=== PATIENT | female | born 1965 | race Caucasian/White ===

== ENCOUNTER → 2016-08-20 | Outpatient (CLI) | payer BC ==
[~2016-08-20] MED LIST: BCPILLS PO; CZR50 PO; FRCT/ PO; MONT1TAB3 PO; MULT-513 PO; SIMV40TA2 PO; VENL75TA4 PO
--- NOTE | 2016-08-20 16:17 | DIAGNOSTIC IMAGING REPORT ---
PELVIC ULTRASOUND CLINICAL HISTORY: Postmenopausal bleeding. COMPARISON STUDY: None. TECHNIQUE: Transabdominal and transvaginal sonography of the pelvis was performed. FINDINGS: The uterus measures 8.7 x 4.2 x 4.5 cm. The endometrium measures 2 mm thickness. A 1.7 x 1.4 x 1.5 cm hypoechoic right uterine lesion suggests a fibroid. This is likely mural in location. The right ovary was not visualized. The left ovary measured 2.6 x 1.6 x 1.7 cm. No free fluid was identified. IMPRESSION: 1. Normal endometrial thickness of 2 mm. 2. 1.7 cm mural right uterine body fibroid. 3. Nonvisualization of the right ovary. Electronically signed by: Olvin Murdock M.D. 08/20/2016 4:16 PM Dictated Date/Time: 08/20/2016 4:05 PM
== END | disposition home or self-care (01) ==
LOC: C.ULTR 15:22
DX: N95.0 Postmenopausal bleeding (principal)

== ENCOUNTER 2020-03-05 10:01 | Observation (INO) ==
--- NOTE | 2020-02-03 10:08 | PAT Medication Instructions ---
Medication Instructions Date of Service February 03, 2020 Home Medications geqxbsskcd-seguheobgpqtx-kwpn 1 cap PO Q8H PRN losartan 75 mg PO QAM montelukast 10 mg PO QAM simvastatin 40 mg PO QAM spironolactone 25 mg PO BID venlafaxine 37.5 mg PO Q2D vit A-vit C-vit Q-ffhh-wuvgkh [Eye Vitamin and Minerals] 1 tab PO BID STOP taking 2 weeks before surgery If surgery is within 2 weeks, stop taking as soon as possible. vit A-vit C-vit C-xbvs-rkikhj [Eye Vitamin and Minerals] 1 tab PO BID DO NOT take the morning of surgery gsjpbtofdf-zghypwrfqnnei-vqbe 1 cap PO Q8H PRN losartan 75 mg PO QAM montelukast 10 mg PO QAM spironolactone 25 mg PO BID Take morning of surgery With a small sip of water, OTHERWISE NOTHING TO EAT OR DRINK AFTER MIDNIGHT: simvastatin 40 mg PO QAM venlafaxine 37.5 mg PO Q2D (if scheduled) Take evening before surgery wryvvftqol-sagclbchiqvff-yvoj 1 cap PO Q8H PRN (if needed) spironolactone 25 mg PO BID Other Notes If you have any questions please call us at [phone] or [phone] or [phone] or [phone]
--- NOTE | 2020-02-06 09:07 | Anesthesiology Consultation ---
Date of Service February 06, 2020 Assessment & Plan (1) Encounter for pre-operative examination: COVID Status: As of 02/05 assessment, patient denies travel to endemic area, known exposure/sick contacts, or symptoms of COVID19. Patient instructed that they and their household members must follow strict social distancing guidelines, wear a mask in public and avoid travel for 14 days prior to surgery. Preoperative COVID19 testing to be completed prior to surgery per surgeon's arra ngements. Patient made aware to self-isolate as much as possible between COVID testing and surgery. Chart Review Chart Review: Acceptable Risk for Surgery and Patient seen in Pre Admission Testing Teaching & Discussion Instructed NPO after midnight before surgery, except medications with 15 cc of water. Medication instructions provided according to the PAT guidelines. History Surgery Operation Date: 03/05/20 11:10 Proposed Procedures p Left Total Hip Replacement - Haile De La Rosa MD Height/Weight Height: 5 ft 0.5 in Weight: 65.9 kg Allergies Allergy/AdvReac Type Severity Reaction Status Date / Time lisinopril Allergy Severe angio edema Verified 01/27/20 11:11 celecoxib [From Celebrex] Allergy Intermediate MOUTH Verified 01/27/20 11:11 BLEEDING meloxicam Allergy Intermediate HYPERACTIVITY Verified 01/27/20 11:11 DURING THE DAY Penicillins Allergy Intermediate FEET Verified 01/27/20 11:11 SWOLLEN levofloxacin Allergy Mild redness Verified 01/27/20 11:11 and swelling of hand acetaminophen [From Vicodin] AdvReac Mild Insomnia Verified 01/27/20 11:11 hydrocodone [From Vicodin] AdvReac Mild Insomnia Verified 01/27/20 11:11 Medications Home Medications Medication Instructions Recorded Confirmed Last Taken xnfclwmflh-tgqrpscknuicx-krdl 1 cap PO Q8H PRN 01/27/20 01/27/20 Unknown losartan 75 mg PO QAM 01/27/20 01/27/20 Unknown montelukast 10 mg PO QAM 01/27/20 01/27/20 Unknown simvastatin 40 mg PO QAM 01/27/20 01/27/20 Unknown spironolactone 25 mg PO BID 01/27/20 01/27/20 Unknown venlafaxine 37.5 mg PO Q2D 01/27/20 01/27/20 Unknown vit A-vit C-vit V-dcvc-pvdaey [Eye 1 tab PO BID 01/27/20 01/27/20 Unknown Vitamin and Minerals] Past Medical History Medical History (Updated 02/06/20 @ 15:22 by Ray Tomas) Anxiety Dry eye syndrome Hx of cardiac murmur A CHILD. NOT NOTED ON EXAM AT [facility]. Hyperlipidemia Hypertension Migraine MRSA (methicillin resistant Staphylococcus aureus) 10 YRS AGO IN SPIDER BITE. NASAL SWAB 02/06/20 NEGATIVE. Osteoarthritis Exercise / Class Metabolic Activity II 4-5 Yardwork/Stairs/Walk up hill Past Family History Family History Mother Family history of diabetes mellitus Past Surgical History Surgical History History of bowel resection "FOR TWISTED BOWEL" History of cholecystectomy History of surgery of head I & D (SPIDER BITE INFECTION +MRSA) History of tooth extraction S/P LASIK surgery of both eyes Past Anesthesia History No Hx of Anesthesia Complications and No Family Hx of Anesthesia Complications History of PONV No Hx of PONV and Hx of Motion Sickness Social History Smoking Status: Never smoker Do You Dip or Chew Tobacco: No Hx Alcohol Use: Yes alcohol intake frequency: holidays/special occasions only Hx Substance Use: No Review of Systems Pt denies any recent chest pain, shortness of breath, cough, fever, URI, or uncontrolled acid reflux. +claustrophobia, palpitations induced by panic from mask-wearing Physical Exam Vital Signs BP: 156/89 (pt feeling anxious due to mask wearing) P: 104bpm SPO2:97% RA T: 98.8 F R: ENMT Mouth: no dental restorations, no chipped teeth and no loose teeth Thyromental Distance: > or= 3.5 Finger Breadths Mallampati Class: II Neck normal visual inspection; neck extension not limited Respiratory normal respiratory effort Auscultation: lungs clear to auscultation bilaterally Cardiovascular Rate/Rhythm: regular rhythm and + tachycardic Heart Sounds: no murmur Extremities: no edema Testing Laboratory Results 02/06/20 09:16 02/06/20 09:16 PT 10.3 Seconds (9.0-12.0) 02/06/20 09:16 INR 1.0 (0.9-1.1) 02/06/20 09:16 APTT 27.3 Seconds (21.0-31.0) 02/06/20 09:16 Blood Type O Positive 02/06/20 09:16 Antibody Screen NEGATIVE 02/06/20 09:16 Electrocardiogram Date: 02/06/20 Findings: + NSR @ (81bpm) *unconfirmed Chest X-Ray Date: 02/06/20 Findings: + NAD
--- NOTE | 2020-02-06 09:38 | XRay Report ---
TWO VIEW CHEST CLINICAL HISTORY: Preoperative examination. FINDINGS: PA and lateral chest radiographs are compared to study dated 12/31/2013. The cardiomediastin al silhouette is unremarkable. There is mild chronic elevation of the right hemidiaphragm. The lungs and pleural spaces are clear. There is no pneumothorax. The skeletal structures are osteopenic. The b michael thorax appears intact. Cholecystectomy clips are noted in the right upper quadrant. IMPRESSION: No active disease in the chest. ACT 112: Negative or not required by law. Electronically signed by: Elvis Liu M.D. 02/06/2020 9:37 AM
[2020-02-06 10:23] LABS: Basophils # (auto) 0.05 K/uL (0-0.2); Eosinophils % (auto) 1.9 %; Hematocrit (blood only) 41.6 % (37-47); Hemoglobin 13.9 g/dL (12.0-16.0); Immature Granulocytes # (auto) 0.02 K/uL (0.00-0.02); Immature Granulocytes % (auto) 0.4 %; Lymphocytes # (auto) 2.04 K/uL (1.2-3.4); Lymphocytes % (auto) 39.8 %; Mean Corpuscular Hemoglobin 28.7 pg (25-34); Mean Corpuscular Hgb Conc 33.4 g/dL (32-36); Mean Platelet Volume 9.4 fL (7.4-10.4); Monocytes # (auto) 0.31 K/uL (0.11-0.59); Neutrophils # (auto) 2.61 K/uL (1.4-6.5); Neutrophils % (auto) 50.9 %; Platelet Count 251 K/uL (130-400); RDW Coefficient of Variation 12.6 % (11.5-14.5); RDW Standard Deviation 40.1 fL (36.4-46.3); Red Blood Count 4.84 M/uL (4.2-5.4); White Blood Count 5.13 K/uL (4.8-10.8)
[2020-02-06 10:44] LABS: Partial Thromboplastin Time 27.3 Seconds (21.0-31.0); Prothrombin Time 10.3 Seconds (9.0-12.0)
[2020-02-06 10:57] LABS: BUN Creatinine Ratio 19.7 (10-20); Calcium 9.8 mg/dl (8.5-10.1); Creatinine Clr Calc Pharmacy 52.8 ml/min; Est GFR (African American) 71.2; Est GFR (Non-African American) 61.4; Potassium 4.6 mmol/L (3.5-5.1)
--- NOTE | 2020-02-07 19:27 | Electrocardiogram Report ---
Test Reason : Blood Pressure : / mmHG Vent. Rate : 081 BPM Atrial Rate : 081 BPM P-R Int : 160 ms QRS Dur : 080 ms QT Int : 368 ms P-R-T Axes : 069 080 067 degrees QTc Int : 427 ms Normal sinus rhythm Normal ECG When compared with ECG of 05-DEC-2012 14:13, No significant change was found Confirmed by Mathieu Wallace ([id number]) on 02/07/2020 7:26:52 PM Referred By: Haile De La Rosa Confirmed By:Mathieu Wallace
--- NOTE | 2020-03-02 18:20 | History and Physical Report ---
DATE OF ADMISSION: 03/05/2020 CHIEF COMPLAINT: Left hip pain and discomfort. HISTORY OF PRESENT ILLNESS: The patient is a 54-year-old very active female who presents for surgical treatment of her left hip. She is referred to my clinic by my partner, Dr. Kearns. She has a several year history of increasing left hip pain and discomfort that has gotten worse over time. She used to be an avid runner, but unable to run anymore. She has been unable to run for a couple years. She describes mostly groin and thigh pain. Her activity level has decreased as a result of her pain. She has gained weight and unable to exercise to work this off. She takes anti-inflammatories with minimal relief. She has difficulty putting her shoes and socks on. She would like to have her hip fixed. Of note, she has a history of MRSA infection in the past. She did have a recent negative culture. PAST MEDICAL HISTORY: Significant for, 1. MRSA infection in the past. 2. Hypertension. 3. Elevated cholesterol. PAST SURGICAL HISTORY: Includes, 1. Bowel resection. 2. Cholecystectomy. 3. MRSA infection on her forehead from a spider bite. She did have a recent negative MRSA test. ALLERGIES: PENICILLIN, WHICH CAUSES SWOLLEN FEET ONLY. NO REAL TRUE ALLERGY. SHE DESCRIBES ALLERGIES TO VICODIN, LISINOPRIL, LEVOFLOXACIN, MELOXICAM AND CELEBREX. CURRENT MEDICINES: Include, 1. Cozaar 75 mg. 2. Zocor 40 mg. 3. Effexor 37.5 mg every other day. 4. Singulair 10 mg. 5. Spironolactone 25 mg twice a day. 6. Conklin with vitamin E twice a day. 7. Aspirin. 8. Caffeine. 9. Fiorinal. SOCIAL HISTORY: A 54-year-old female. She is quite active. Does not smoke. Occasional alcohol intake. FAMILY HISTORY: Noncontributory. REVIEW OF HISTORY: Negative for diabetes, neurologic problem, vascular problems or bleeding disorders. Denies any chest pain or shortness of breath. No history of DVT or PE. No known bleeding problems. PHYSICAL EXAMINATION: GENERAL: Shows a pleasant, middle-aged female. Looks to be in excellent health. HEENT: Benign. NECK: Supple, no lymphadenopathy. LUNGS: Clear to auscultation. HEART: Has a regular rate and rhythm. ABDOMEN: Soft, nontender, nondistended. EXTREMITIES: Grossly neurovascularly intact except as follows: Examination of the left hip and leg reveals the patient ambulates with a significantly antalgic gait. She limps on the left side. Leg lengths appear pretty clinically equal. She has got a very stiff hip on the left side with internal rotation in neutral, which re-creates her pain. Negative straight leg raise. No knee effusion. X-RAYS: X-rays of the left hip were reviewed. It shows advanced left hip DJD. She has complete loss of her superior joint space. She has got a large medial osteophyte. She has got osteophytes around the femoral head and subchondral sclerosis. ASSESSMENT: A 54-year-old white female with advanced left hip degenerative joint disease. It is affecting her quality of life. She has failed conservative treatment and would like to have her left hip fixed. PLAN: We are going to proceed with a left total hip replacement. The risks and benefits of this procedure were explained to the patient including but not limited to DVT, PE, , infection, neurological injury, vascular injury, bleeding problem, pain, limited range of motion, stiffness, failure to relieve her symptoms, incomplete relief of symptoms, need for further surgery in the future, fracture, leg length inequality, nerve palsy, dislocation, etc. The patient understands and desires to proceed. Informed consent was obtained. She has a history of MRSA infection in the past. She did have a recent negative screen, but we will likely give her preoperative vancomycin and Ancef for prophylactic reasons. She is planning to be discharged home using [facility] home health program.
[~2020-03-05 10:01] MED LIST changes: +ACETAMINOPHEN 500 MG TAB PO SCH; -BCPILLS PO; +BUPIVACAINE 0.5 % 5 MG/1 ML PF 10ML VIAL ONE; +CEFAZOLIN 2000MG 2,000 MG/15 ML SYR IV SCH; -CZR50 PO; +FAMOTIDINE 20 MG TAB PO SCH; -FRCT/ PO; +GABAPENTIN 600 MG DOSE PO SCH; +LR 500ML BOLUS, THEN 15ML/HR IV SCH; +LR 60ML/HR IV SCH; +METOCLOPRAMIDE HCL 10 MG TABLET PO SCH; -MONT1TAB3 PO; -MULT-513 PO; -SIMV40TA2 PO; +TRANEXAMIC ACID 1,000 MG **IV Pre-op IV SCH; +VANCOMYCIN HCL 1,000 MG/270 ML BAG IV SCH; -VENL75TA4 PO
--- NOTE | 2020-03-05 10:54 | History & Physical Bridge Note ---
Date of Service March 05, 2020 History & Physical Bridge Note I have examined the patient, reviewed the History & Physical and in the interval since the performance of the History & Physical I have noted the following changes of clinical significance: no changes noted
[2020-03-05] MEDS ORDERED: MoRPHine SULFATE PF 1 MG/ML 10 ML AMP/VIAL ONE (11:35)
[2020-03-05] MEDS ORDERED: MIDAZOLAM HCL 1 MG/ML 2ML VIAL ONE ×2 (11:35)
[2020-03-05] MEDS ORDERED: fentaNYL citrate 100 MCG/2 ML VIAL ONE (11:35)
[2020-03-05] MEDS ORDERED: PROMETHAZINE HCL 12.5 MG in SODIUM CHLORIDE 0.9% 50 ML IV PRN (12:00)
[2020-03-05] MEDS ORDERED: fentaNYL citrate 100 MCG/2 ML VIAL IV PRN (12:00)
[2020-03-05] MEDS ORDERED: ePHEDrine sulfate 50 MG/ML AMP IV PRN ×2 (12:00→12:57)
[2020-03-05] MEDS ORDERED: HYDROmorphone INJ 2 MG/ML SYR/VIAL IV PRN (12:00)
[2020-03-05] MEDS ORDERED: ONDANSETRON INJ 2 MG/ML 2 ML VIAL IV PRN ×3 (12:00→15:59)
[2020-03-05] MEDS ORDERED: ATROPINE SULFATE 0.1 MG/ML 10ML SYR IV PRN (12:00)
[2020-03-05] MEDS ORDERED: BACITRACIN INJ 50,000 UNIT VIAL ONE (12:47)
[2020-03-05] MEDS ORDERED: EPINEPHrine INJ 1 MG/ML AMP ONE (12:47)
[2020-03-05] MEDS ORDERED: BUPIVACAINE 0.5 % 5 MG/1 ML MPF 30ML VIAL ONE (12:48)
[2020-03-05] MEDS ORDERED: NALOXONE HCL 0.08 MG in SYRINGE 1.8 ML IV PRN (12:57)
[2020-03-05] MEDS ORDERED: HYDROmorphone INJ 0.5 MG/0.5 ML SYR IV PRN (12:57)
[2020-03-05] MEDS ORDERED: LACTATED RINGER'S 500 ML IV PRN (12:57)
[2020-03-05] MEDS ORDERED: DiphenhydrAMINE HCL 50 MG/ML VIAL IV PRN (12:57)
[2020-03-05] MEDS ORDERED: NALOXONE HCL 1 MG in SODIUM CHLORIDE 0.9% 1000ML 1,000 ML IV PRN (12:57)
[2020-03-05] MEDS ORDERED: NALOXONE HCL 0.4 MG/1 ML VIAL/CARP IV PRN ×2 (12:57→15:59)
[2020-03-05] MEDS ORDERED: PROMETHAZINE HCL 25 MG in SODIUM CHLORIDE 0.9% 50 ML IV PRN (12:57)
[2020-03-05] MEDS ORDERED: MoRPHine SULFATE PF 1 MG/ML 10 ML AMP/VIAL INT SPINAL ONE (12:57)
[2020-03-05] MEDS ORDERED: SODIUM CHLORIDE 0.9% 1000ML 1,000 ML IV SCH (13:00)
[2020-03-05] MEDS ORDERED: NO NARCOTICS OR SEDATIVES SCH (13:00)
[2020-03-05] MEDS ORDERED: PROPOFOL IV EMULSION 10 MG/ML 20 ML VIAL IV ONE (13:05)
[2020-03-05] MEDS ORDERED: PHENYLEPHRINE 100MCG/ML 5ML SYR ONE (13:29)
[2020-03-05] MEDS ORDERED: ePHEDrine sulfate 50 MG/ML SYR ONE (13:34)
--- NOTE | 2020-03-05 14:32 | Post Operative Brief Note ---
PG Immediate Post Op with CF Date of Surgery March 05, 2020 Pre & Post Diagnosis Operation Date: 03/05/20 12:30 Pre-Op Diagnosis: Left Hip Degenerative Joint Disease Post-Op Diagnosis: Left Hip Degenerative Joint Disease I identified the patient and participated in the time-out.: Yes Procedure Operation Date: 03/05/20 12:30 Actual Procedures p Left Total Hip Replacement(Left) - Haile De La Rosa MD Surgeon Haile De La Rosa MD Film Composer Kera, PAC Estimated Blood Loss 200 Findings Consistent with Post-Op Diagnosis Fluids 1100 cc Specimens Specimen Description: Permanent Solution: A.) Left Femoral Head Drains Olson Catheter (16 omani olson 10ml balloon; anesthesia monitoring urine output throughout case) Anesthesia Type Spinal MAC Complications none Disposition Accompanied Patient To Recovery: Yes Disposition: Recovery Room
--- NOTE | 2020-03-05 14:43 | Operative Report ---
Post Operative Report Pre & Post Diagnosis Operation Date: 03/05/20 12:30 Pre-Op Diagnosis: Left Hip Degenerative Joint Disease Post-Op Diagnosis: Left Hip Degenerative Joint Disease I identified the patient and participated in the time-out.: Yes Procedure Operation Date: 03/05/20 12:30 Actual Procedures p Left Total Hip Replacement(Left) - Haile De La Rosa MD Surgeon Haile De La Rosa MD Fire Equipment Repairer Inspector Kera, PAC Estimated Blood Loss 200 Findings Consistent with Post-Op Diagnosis Operative findings revealed advanced left hip DJD with grade 4 [id number] disease of the femoral head and acetabulum. Fairly minimal osteophyte formation. Moderate sized joint effusion. Fluids 1100 cc. Specimens Left femoral head sent for pathology. Drains None. Anesthesia Type Spinal MAC Complications none Disposition Accompanied Patient To Recovery: Yes Disposition: Recovery Room Indications Patient is a 54-year-old very active female is had a several year history of gradual and progressive increased left hip pain and discomfort describes gotten worse significantly so over the past 6 months. She become much less less active as a result of her pain and had a significant weight gain. X-rays show advanced left hip arthritis but she failed conservative care and elected proceed with total hip arthroplasty. Description of Procedure Operative implants consist of: 1 Biomet G7 size 50 mm acetabular shell. 2. 6.5 cancellus acetabular screws 1 of 35 mm length and 125 mm length. 3. Hines hole pearl diver. 4. Highly cross-linked polyethylene liner with a 50 mm outer diameter 32 mm inner diameter. 5. [place] Corail size 9 KLA femoral stem 6. +1/32 mm ceramic articular ball. The patient was taken to the operating room identified and placed on the operating table supine position protectors were properly padded. IV antibiotics arrived by anesthesia team. A spinal anesthetic had been implemented holding area. Duke catheter was placed in sterile fashion with the patient then placed in the right lateral decubitus position. Axillary roll was placed. Stulberg hip positioner was used for positioning. All contact areas were meticulously padded and the left hip and leg were then prepped and draped in usual sterile fashion. A posterior lateral approach the left hip was then performed through a curvilinear incision centered over the greater trochanter. Sharp dissection was cut through subcutaneous this down below the IT band gluteal fascia. The IT band gluteal fascia incised longitudinally in line with skin incision. The underlying greater truck bursa was excised. Piriformis and external rotators along with the posterior hip capsule released from the posterior aspect hip as a single layer. Great care was taken throughout the procedure protect sciatic nerve at all times. Hip was internally rotated and dislocated. A femoral neck osteotomy cut was made with a Final Cut about 5 mm above the lesser trochanter. Femoral head was removed and sent for pathology. The femur was retracted anteriorly. Attention drawn the acetabulum. The acetabulum labrum was excised per the pulmonary fat was excised. Sequential reaming the acetabular was then performed begin with a size 45 and progressing up to 49. I did reamed just a little bit with a 50 reamer. A 58 mm Biomet G7 acetabular shell was then placed in about 40 degrees lateral opening and 20 degrees of anteversion. Was fixed with two 6.5 cancellus acetabular screws. Trial liner was placed. Attention drawn the femur. The proximal femur was entered with a cookie-cutter followed by canal finder. I then broached begin the size 8 and progressing to a 9. Excellent fit with a 9. I then used a calcar reamer to smooth and off the calcar. I then trialed the hip. The +5 articular ball just seemed a bit tight and a little bit long so we used a +1 articular ball. With this the hip was fully stable full extension and external rotation and flexion to 90 degrees internal rotation over 60 degrees. Soft tissue tension seemed appropriate. Leg lengths seemed appropriate. Attention then drawn toward placing the permanent implants. All trial implants were removed. An apex hole eliminator was placed. Highly cross-linked polyethylene liner was placed. A Ottawa KLA size 9 femoral stem was impacted in position. +1/32 mm ceramic articular ball was placed. Hip was located once again found to be stable. Attention drawn toward closing. The wound was irrigated with copious also pulsatile lavage solution. I did inject locally with 60 cc of half percent Marcaine with epinephrine. The posterior capsule and external rotators then repaired through drill holes in the posterior trochanter as a single layer with #2 Tycron suture. The IT band gluteal fascia then closed in 1 PDS suture running fashion with subcutaneous tissues then closed 2 layers with a deep layer #1 Vicryl suture and the subcutaneous tissues with 2-0 Dexon suture in a buried interrupted fashion. Skin was closed skin leticia. Leg was then cleaned dried a sterile dressed com posed Xeroform, 4 x 4's, sterile ABD pad and foam tape was applied. Patient then transferred to the recovery room in stable condition. Patient tolerated procedure well and there were no complications. Jesron Cote, my physician assistant women's basketball coach, was present and essential for the entire procedure. His assistance was essential and required for appropriate patient positioning, prepping and draping, surgical exposure, performing the technical details the operation, placing the implants, and closure of the wound, and placement of the sterile bandage. I attest to the content of the Intraoperative Record and any orders documented therein. Any exceptions are noted below.
--- NOTE | 2020-03-05 15:01 | XRay Report ---
AP PELVIS, CROSSTABLE LATERAL LEFT HIP History: Left total hip arthroplasty. Degenerative arthritis. Postop. FINDINGS: The patient is status post a left total hip arthroplasty. The hardware is intact. No fractu re or dislocation. Skin leticia are in place. IMPRESSION: Left total hip arthroplasty. No evidence for hardware complication. ACT 112: Negative or not required by law. Electronically signed by: Michael Le M.D. 03/05/2020 2:59 PM
--- NOTE | 2020-03-05 15:58 | Anesthesiology Progress Note ---
Date of Service March 05, 2020 Anesthesia Post Procedure Vital Signs Vital Signs: Temp Pulse Pulse Resp BP Pulse Ox 03/05/20 15:30 70 14 109/65 93 03/05/20 15:20 36.4 C L 72 16 110/64 93 03/05/20 15:00 82 14 132/78 95 03/05/20 14:50 85 16 128/69 98 03/05/20 14:40 88 15 127/60 100 03/05/20 14:32 36.7 C 95 H 18 138/77 96 03/05/20 11:34 36.8 C 80 20 159/93 H 100 03/05/20 10:32 37 C 91 H 20 171/86 H 98 Pain Intensity Left Hip: Pain Intensity: 6 Transfer of Care Handoff Completed per policy Notes Mental Status: alert / awake / arousable and participated in evaluation Patient Amnestic to Procedure: Yes Nausea / Vomiting: adequately controlled Pain: adequately controlled Airway Patency, RR, SpO2: stable & adequate BP & HR: stable & adequate Hydration State: stable & adequate Neuraxial Anesthesia: was administered and sensory block is resolving Anesthetic Complications: no major complications apparent and Pt Satisfied with anesthetic care
[2020-03-05] MEDS ORDERED: MAGNESIUM HYDROXIDE SUSP 30 ML UDC PO PRN (15:59)
[2020-03-05] MEDS ORDERED: METOCLOPRAMIDE HCL INJ 5 MG/ML 2 ML VIAL IV PRN (15:59)
[2020-03-05] MEDS ORDERED: ALUMINUM/MAGNESIUM SUSP 30 ML UDC PO PRN (15:59)
[2020-03-05] MEDS ORDERED: bisacodyL 10 MG SUPP PR PRN (15:59)
[2020-03-05] MEDS ORDERED: VANCOMYCIN CONSULT ACTIVE PRN (15:59)
[2020-03-05] MEDS: Scopolamine CHECK PATCH PLACEMENT SCH (17:06)
[2020-03-05] MEDS: SPIRONOLACTONE 25 MG TAB PO SCH ×2 (17:33→17:44)
[2020-03-05] MEDS: KETOROLAC 30 MG/ML VIAL IV SCH ×2 (17:34→22:39)
[2020-03-05] MEDS: FERROUS GLUCONATE 324 MG TAB PO SCH (17:34)
[2020-03-05] MEDS: ASCORBIC ACID 500 MG TAB PO SCH ×2 (17:34→17:43)
--- NOTE | 2020-03-05 17:53 | Progress Notes ---
DATE: 03/05/2020 SUBJECTIVE: A 54-year-old white female postop from a left hip replacement. She is doing pretty well. Not having any pain. No chest pain or shortness of breath. Not feeling dizzy or lightheaded. She says her tongue feels a little bit funny. OBJECTIVE: VITAL SIGNS: Temperature 36.4. Vital signs stable. GENERAL: Shows a pleasant, middle-aged female. She is sitting up in bed and talking to her , looks completely normal. HEENT: Benign. There is no facial asymmetry. She can open and close her mouth normally. No tongue deviation or abnormal appearance. LUNGS: Clear to auscultation. HEART: Has a regular rate and rhythm. ABDOMEN: Soft, nontender, nondistended. EXTREMITIES: Grossly neurovascularly intact except as follows. Examination of the left leg reveals the leg to be well aligned. Dressing is clean, dry and intact. She can dorsiflex and plantarflex her foot appropriately. She is neurologically intact. X-RAYS: X-rays of left hip from recovery room were reviewed. It shows left uncemented total hip arthroplasty. Components looked to be in good position. No signs . ASSESSMENT: A 54-year-old white female postop from a left hip replacement, doing well. Her pain is controlled. Hip is located. She is neurologically intact. She says her tongue feels a little bit abnormal, but there are no objective findings or any problems and her vital signs are stable. No signs of neurological issues. PLAN: 1. DVT prophylaxis including thigh-high TEDs, SCDs, and aspirin twice a day. 2. PT/OT. She can weightbear as tolerated. Left total hip protocol. 3. Pain control, not having any pain yet. 4. IV antibiotics x24 hours. 5. Disposition: She is planning to be discharged to home with some home health once adequately recovered and medically stable.
[2020-03-05] MEDS: SODIUM CHLORIDE 0.9% 1000ML 1,000 ML IV SCH ×2 (18:05→23:30)
[2020-03-05] MEDS: ASPIRIN 81 MG ECTAB PO SCH (20:19)
[2020-03-05] MEDS: DOCUSATE SODIUM 100 MG CAP PO SCH (20:19)
[2020-03-05] MEDS: CEFAZOLIN 1000MG 1,000 MG/7.5 ML SYR IV SCH (20:21)
[2020-03-05] MEDS ORDERED: TRANEXAMIC ACID / 0.7% NACL 1,000 MG/100 ML BAG IV SCH (20:30)
[2020-03-05] MEDS ORDERED: SENNA 8.6 MG TAB PO SCH (21:00)
[2020-03-05] MEDS: ACETAMINOPHEN 500 MG TAB PO SCH (21:54)
[2020-03-05] MEDS ORDERED: VANCOMYCIN HCL 1,000 MG in SODIUM CHLORIDE 0.9% 250 ML IV SCH (23:00)
[2020-03-06] MEDS: Scopolamine CHECK PATCH PLACEMENT SCH ×2 (00:27→07:27)
[2020-03-06] MEDS: ACETAMINOPHEN 500 MG TAB PO SCH ×2 (05:52→13:21)
[2020-03-06] MEDS: CEFAZOLIN 1000MG 1,000 MG/7.5 ML SYR IV SCH (05:52)
[2020-03-06] MEDS: KETOROLAC 30 MG/ML VIAL IV SCH ×2 (05:52→11:14)
[2020-03-06 05:56] LABS: Basophils # (auto) 0.02 K/uL (0-0.2); Basophils % (auto) 0.3 %; Eosinophils # (auto) 0.09 K/uL (0-0.5); Eosinophils % (auto) 1.3 %; Hematocrit (blood only) 28.2 % (37-47); Hemoglobin 9.2 g/dL (12.0-16.0); Immature Granulocytes # (auto) 0.01 K/uL (0.00-0.02); Immature Granulocytes % (auto) 0.1 %; Lymphocytes # (auto) 1.71 K/uL (1.2-3.4); Mean Corpuscular Hemoglobin 28.5 pg (25-34); Mean Corpuscular Hgb Conc 32.6 g/dL (32-36); Mean Corpuscular Volume 87.3 fL (80-100); Mean Platelet Volume 8.9 fL (7.4-10.4); Monocytes # (auto) 0.71 K/uL (0.11-0.59); Monocytes % (auto) 10.4 %; Neutrophils # (auto) 4.31 K/uL (1.4-6.5); Neutrophils % (auto) 62.9 %; Platelet Count 179 K/uL (130-400); RDW Coefficient of Variation 12.8 % (11.5-14.5); Red Blood Count 3.23 M/uL (4.2-5.4); White Blood Count 6.85 K/uL (4.8-10.8)
[2020-03-06 06:25] LABS: BUN Creatinine Ratio 18.4 (10-20); Calcium 8.4 mg/dl (8.5-10.1); Creatinine Clr Calc Pharmacy 61.4 ml/min; Est GFR (African American) 86.3; Est GFR (Non-African American) 74.5
[2020-03-06] MEDS ORDERED: DC INTRASPINAL MORPHINE ONE (06:57)
[2020-03-06] MEDS ORDERED: BUTALBITAL/ASPIRIN/CAFFEINE 1 TAB TAB PO PRN (06:58)
[2020-03-06] MEDS ORDERED: HYDROmorphone INJ 0.5 MG/0.5 ML SYR IV PRN (06:58)
[2020-03-06] MEDS: TRAMADOL HCL 50 MG TABLET PO PRN ×2 (07:43→15:13)
--- NOTE | 2020-03-06 08:10 | Anesthesiology Progress Note ---
Date of Service March 06, 2020 Anesthesia Post Procedure Vital Signs Vital Signs: Temp Pulse Pulse Resp BP Pulse Ox 03/06/20 07:16 37.3 C 76 16 104/65 97 03/06/20 04:45 14 93 03/06/20 04:02 36.7 C 66 16 92/58 L 97 03/06/20 03:46 16 97 03/06/20 02:45 12 94 03/06/20 01:45 12 95 03/06/20 00:45 16 92 03/05/20 23:45 16 92 03/05/20 23:20 36.9 C 75 16 111/67 97 03/05/20 22:45 18 97 03/05/20 21:41 16 96 03/05/20 20:50 16 92 03/05/20 19:50 18 95 03/05/20 19:34 36.8 C 75 17 132/68 100 03/05/20 18:45 81 16 109/70 96 03/05/20 18:44 16 96 03/05/20 17:47 16 95 03/05/20 17:46 36.7 C 78 16 112/71 95 03/05/20 16:52 16 96 03/05/20 16:44 36.4 C L 74 17 102/66 96 03/05/20 16:15 36.4 C L 70 17 115/72 92 03/05/20 15:45 36.7 C 68 16 114/71 93 03/05/20 15:30 70 14 109/65 93 03/05/20 15:20 36.4 C L 72 16 110/64 93 03/05/20 15:00 82 14 132/78 95 03/05/20 14:50 85 16 128/69 98 03/05/20 14:40 88 15 127/60 100 03/05/20 14:32 36.7 C 95 H 18 138/77 96 03/05/20 11:34 36.8 C 80 20 159/93 H 100 03/05/20 10:32 37 C 91 H 20 171/86 H 98 Pain Intensity Left Hip: Pain Intensity: 5 Notes Mental Status: alert / awake / arousable and participated in evaluation Nausea / Vomiting: adequately controlled Pain: adequately controlled Airway Patency, RR, SpO2: stable & adequate BP & HR: stable & adequate Hydration State: stable & adequate Neuraxial Anesthesia: was administered and sensory block resolved Anesthetic Complications: no major complications apparent and Pt Satisfied with anesthetic care
[2020-03-06] MEDS: ASPIRIN 81 MG ECTAB PO SCH (08:28)
[2020-03-06] MEDS: ASCORBIC ACID 500 MG TAB PO SCH (08:28)
[2020-03-06] MEDS: DOCUSATE SODIUM 100 MG CAP PO SCH (08:28)
[2020-03-06] MEDS: FERROUS GLUCONATE 324 MG TAB PO SCH (08:28)
[2020-03-06] MEDS: SPIRONOLACTONE 25 MG TAB PO SCH (08:29)
[2020-03-06] MEDS ORDERED: SIMVASTATIN 40 MG TAB PO SCH (09:00)
[2020-03-06] MEDS ORDERED: VENLAFAXINE HCL 37.5 MG TAB PO SCH (09:00)
[2020-03-06] MEDS ORDERED: MONTELUKAST SODIUM 10 MG TABLET PO SCH (09:00)
[2020-03-06] MEDS ORDERED: LOSARTAN POTASSIUM 25 MG TAB PO SCH (09:00)
[2020-03-06] MEDS ORDERED: CEROVITE ADV FORMULA TAB PO SCH (09:00)
[2020-03-06] MEDS ORDERED: MULTIVITAMIN TAB PO SCH (09:00)
[2020-03-06 11:35] VITALS: BP 118/73; PULSE 74; TEMP 98.4; O2SAT 94
--- NOTE | 2020-03-06 14:04 | Progress Notes ---
DATE: 03/06/2020 SUBJECTIVE: A 54-year-old white female postop day 1 from left hip replacement. She is doing pretty well. Pain has been controlled. Therapy went well. No chest pain or shortness of breath. Not feeling dizzy or lightheaded. OBJECTIVE: VITAL SIGNS: Temperature 36.9. Vital signs stable. GENERAL: Shows a pleasant, middle-aged female. She is sitting up in her bedside chair, looks pretty comfortable. LUNGS: Clear to auscultation. HEART: Regular rate and rhythm. ABDOMEN: Soft, nontender, nondistended. EXTREMITIES: Grossly neurovascularly intact except as follows: Examination of the left lower extremity reveals leg lengths to be equal. Dressing is clean, dry and intact. Thigh is soft and supple. She is neurologically intact. LABORATORY DATA: Hemoglobin is 9.2, hematocrit 28.2. Electrolytes are stable. ASSESSMENT: A 54-year-old white female postoperative day 1 from a left hip replacement. She is doing pretty well. Pain is controlled. Therapy went well. She is a bit anemic, but asymptomatic. PLAN: 1. DVT prophylaxis including thigh-high TEDs, SCDs, and aspirin twice a day. 2. PT/OT. Weight bear as tolerated. Left total hip protocol. 3. Pain control, doing well with current pain regimen. 4. Anemia. We will continue iron supplementation. 5. Disposition: Plan to discharge to home with some home health likely later today if doing okay and pain controlled.
--- NOTE | 2020-03-11 07:36 | Discharge Summary ---
Date of Service March 11, 2020 Admission HPI Per Admitting Provider Documented in the H & P Admission Exam (Per Admitting) Constitutional Documented in the H & P Discharge Data Consultations 03/06/20 08:00 Consult Case Management - Discharge Planning Routine Procedures Performed Operation Date: 03/05/20 12:30 Actual Procedures p Left Total Hip Replacement(Left) - Haile De La Rosa MD Hospital Course (1) Status post total hip replacement, left: This patient is a 54 year old female admitted on 03/05/20 and underwent total hip arthroplasty. She tolerated the procedure well and there were no complications. Transferred to the PACU post op and later to the orthopedic floor for further care. She was given vancomycin for antibiotic prophylaxis. She was also given KING stockings, SCDs, and aspirin for DVT prophylaxis. Hemoglobin, hematocrit, and vital signs were monitored during her hospital stay and remained stable. Did not require any blood transfusions. She did receive an iron supplement for some anemia. There were no complications during her hospital stay. By post op day #1 the patient was tolerating a regular diet, pain was reasonably controlled with oral pain medicine, and she was participating in physical therapy. On post op day #1 the patient was discharged home and set up with home health care. She was given printed discharge instructions including prescriptions for extra strength tylenol, aspirin, tramadol, and iron supplement. Continue physical therapy, weight bearing as tolerated. Total hip precautions. Continue KING stockings. Follow up approximately 2 weeks post op or sooner if there are problems or concerns. Coding Level of Care Code None Diagnoses Status post total hip replacement, left Z96.642
== END 2020-03-06 15:37 | disposition home health service (06) ==
LOC: 3E 10:01 → ASU 10:01